=== PATIENT | female | born 1980 | race Two or more races ===

== ENCOUNTER 2016-08-20 14:36 | Emergency (ER) | payer OTHER ==
[~2016-08-20] VITALS: Ht 157.5 cm; Wt 47.0 kg
[2016-08-20 14:55] VITALS: BP 100/69
== END 2016-08-20 19:05 | disposition home or self-care (01) ==
LOC: ER 15:02
DX: G44.209 Tension-type headache, unspecified, not intractable (principal); Z88.0 Allergy status to penicillin
CPT/HCPCS: 99281

== ENCOUNTER 2019-05-21 13:12 | Emergency (ER) | payer OTHER ==
[~2019-05-21] VITALS: Ht 157.5 cm; Wt 55.0 kg
[2019-05-21 13:33] VITALS: BP 145/82
== END 2019-05-21 14:56 | disposition home or self-care (01) ==
LOC: ER 13:12
DX: R10.13 Epigastric pain (principal); R03.0 Elevated blood-pressure reading, without diagnosis of hypertension
CPT/HCPCS: 99283